=== PATIENT | female | born 1965 | race American Indian/Alaskan Native ===

== ENCOUNTER 2017-03-31 10:11 | Emergency (ER) | payer MEDICARE, MEDICAID ==
--- NOTE | 2017-03-31 12:42 | Emergency Department Report ---
ED Female HPI - General Chief complaint: Urogenital-Female Stated complaint: YEAST INFECTION/VAG BLEEDING Time Seen by Provider: 03/31/17 12:30 Source: patient Mode of arrival: Ambulatory Limitations: No Limitations - History of Present Illness Initial comments: PT c/o vaginal discharge itching, burning, and dysuria x 1 month. PT states she has tried to call her PCP to schedule an appointment but the don't call her back. PT states she has tried OTC Monistat but no improvement, last dose was last night. PT is sexual active with one partner x 4 years, does not use protection. PT does have a hx of "pre diabetes" and no longer gets menstrual cycles due to menopause MD Complaint: vaginal discharge Onset/Timin -: Gradual, month(s) Location: labia Radiation: other (makes chronic back pain worse ) Severity: severe Severity scale (0 -10): 8 Quality: burning Consistency: constant Improves with: none Worsens with: urination, medication Are you Now?: No Associated Symptoms: vaginal discharge, dysuria. denies: abdominal pain, nausea /vomiting, fever/chills - Related Data Sexually active: Yes Previous Rx's Medication Instructions Recorded Last Taken Type Fluconazole [Diflucan TAB] 150 mg PO DAILY #2 tablet 03/31/17 Unknown Rx Nitrofurantoin [place]/M-Cryst 100 mg PO Q12HR #14 capsule 03/31/17 Unknown Rx [Macrobid CAP] Allergies Allergy/AdvReac Type Severity Reaction Status Date / Time Penicillins Allergy Unknown Verified 03/12/15 10:56 ED Review of Systems ROS: Stated complaint: YEAST INFECTION/VAG BLEEDING Other details as noted in HPI Comment: All other systems reviewed and negative Constitutional: denies: chills, fever Endocrine: increased thirst, increased urine Gastrointestinal: denies: abdominal pain, nausea, vomiting Genitourinary: dysuria, frequency, discharge. denies: abnormal menses ED Past Medical Hx - Past Medical History Previous Medical History?: Yes Hx Hypertension: Yes Additional medical history: CAD, high cholesterol - Surgical History Past Surgical History?: Yes Hx Open Heart Surgery: Yes Additional Surgical History: CABG 2010 - Social History Smoking Status: Former Smoker Substance Use Type: Alcohol, Prescribed - Medications Home Medications: Home Medications Medication Instructions Recorded Confirmed Last Taken Type Fluconazole [Diflucan TAB] 150 mg PO DAILY #2 tablet 03/31/17 Unknown Rx Nitrofurantoin [place]/M-Cryst 100 mg PO Q12HR #14 capsule 03/31/17 Unknown Rx [Macrobid CAP] ED Physical Exam - General Limitations: No Limitations General appearance: alert, in no apparent distress - Head Head exam: Present: atraumatic, normocephalic, normal inspection - Eye Eye exam: Present: normal appearance. Absent: conjunctival injection - ENT ENT exam: Present: normal exam, normal external ear exam - Neck Neck exam: Present: normal inspection, full ROM - Respiratory Respiratory exam: Present: normal lung sounds bilaterally, other (vertical scar to sternum ). Absent: respiratory distress, chest wall tenderness - Cardiovascular Cardiovascular Exam: Present: regular rate, normal rhythm - GI/Abdominal GI/Abdominal exam: Present: soft, normal bowel sounds. Absent: tenderness - External exam: Present: normal external exam Speculum exam: Present: vaginal discharge, other (PT has copious amount of thin to thick white vaginal discharge. vagina with areas of excoriation. no vesicles seen ) Bi-manual exam: Present: normal bi-manual exam. Absent: cervical motion tendernes, uterine enlargement, uterine tenderness - Extremities Exam Extremities exam: Present: normal inspection, full ROM - Back Exam Back exam: Present: normal inspection, full ROM. Absent: CVA tenderness (R), CVA tenderness (L) - Neurological Exam Neurological exam: Present: alert, oriented X3, normal gait - Psychiatric Psychiatric exam: Present: normal affect, anxious (if she has an std ) - Skin Skin exam: Present: warm, dry, intact ED Course Vital Signs 03/31/17 03/31/17 10:19 14:54 Temperature 98.5 F Pulse Rate 69 71 Respiratory 16 16 Rate Blood Pressure 129/79 Blood Pressure 124/80 [Right] O2 Sat by Pulse 100 100 Oximetry - Reevaluation(s) Reevaluation #1: 03/31/17 12:42 PT aware of plan of care. Reevaluation #2: 03/31/17 14:36 PT aware of wet prep results. Due to physical exam, will treat empirically for vulvovaginal candidiasis - Pulse Oximetry Interpretation Digit-Finger Initial Pulse Oximetry Readin Actions Taken: none ED Medical Decision Making - Differential Diagnosis uti, vaginitis, onset dm Critical Care Time: No Critical care attestation.: If time is entered above; I have spent that time in minutes in the direct care of this critically ill patient, excluding procedure time. ED Disposition Clinical Impression: Vaginitis Qualifiers: Chronicity: acute Qualified Code(s): N76.0 - Acute vaginitis UTI (urinary tract infection) Qualifiers: Urinary tract infection type: acute cystitis Hematuria presence: with hematuria Qualified Code(s): N30.01 - Acute cystitis with hematuria Disposition: TO HOME OR SELFCARE Is pt being admited?: No Does the pt Need Aspirin: No Condition: Stable Instructions: Urinary Tract Infection in Women (ED), Vulvovaginal Candidiasis ( ED), Vaginitis (ED) Additional Instructions: Follow up with PCP in 3-5 days finish all antibiotics Return to ED if worsening or concerns Prescriptions: Fluconazole [Diflucan TAB] 150 mg PO DAILY #2 tablet Nitrofurantoin [place]/M-Cryst [Macrobid CAP] 100 mg PO Q12HR #14 capsule Referrals: PRIMARY CARE, [Primary Care Provider] - 3-5 Days TRISTIN WARD MD [Staff Physician] - 3-5 Days Time of Disposition: 14:39
[2017-03-31 13:00] LABS: Bacteria,Urine 1+ /HPF (Negative); Bilirubin,Urine NEG (Negative); Blood,Urine SM (Negative); Ketones,Urine NEG (Negative); Leukocyte Esterase,Urine LG (Negative); Mucus,Urine FEW /HPF; Nitrite,Urine NEG (Negative)
[2017-03-31 14:55] VITALS: BP 124/80
== END 2017-03-31 14:53 | disposition home or self-care (01) ==
LOC: ED 10:11
DX: N76.0 Acute vaginitis (principal); N30.01 Acute cystitis with hematuria; Z88.0 Allergy status to penicillin; I10 Essential (primary) hypertension; E78.00 Pure hypercholesterolemia, unspecified; Z87.891 Personal history of nicotine dependence
CPT/HCPCS: 81001; 82962; 87210; 87591; 99284

== ENCOUNTER 2019-02-18 09:05 | Emergency (ER) | payer MEDICARE ==
--- NOTE | 2019-02-18 09:25 | Emergency Department Report ---
ED General Adult HPI - General Chief complaint: Upper Respiratory Infection Stated complaint: COUGH/SOB/CHEST PAIN Time Seen by Provider: 02/18/19 09:24 Source: patient Mode of arrival: Ambulatory Limitations: No Limitations - History of Present Illness Initial comments: Shirin is a 53-year-old female past medical history of coronary artery status post defibrillator disease tobacco abuse who presents with coughing that has been going on since last Wednesday. Patient states that she's been coughing all times a day TODAY. She notes that nothing makes it better and nothing makes it worse. Patient currently denies having any shortness of breath denies having any chest pain. She states that she's been taking Robitussin-DM for her cough. She will also reports some mild throat irritation. She denies having any fevers or chills she also states that her cough has mild green mucus. - Related Data Previous Rx's Medication Instructions Recorded Last Taken Type Fluconazole [Diflucan TAB] 150 mg PO DAILY #2 tablet 03/31/17 Unknown Rx Nitrofurantoin [place]/M-Cryst 100 mg PO Q12HR #14 capsule 03/31/17 Unknown Rx [Macrobid CAP] ALBUTEROL Inhaler (OR & NICU) 2 puff IH QID PRN #1 inhalation 02/18/19 Unknown Rx [ProAir HFA Inhaler] Benzonatate [Tessalon Perles] 100 mg PO Q8HR #30 capsule 02/18/19 Unknown Rx Menthol/Camphor [Icy Hot Advanced 56 gm TP Q6H #1 cream..g. 02/18/19 Unknown Rx Relief Cream] predniSONE [Deltasone] 20 mg PO BID #10 tab 02/18/19 Unknown Rx Allergies Allergy/AdvReac Type Severity Reaction Status Date / Time Penicillins Allergy Unknown Verified 02/18/19 09:08 ED Review of Systems ROS: Stated complaint: COUGH/SOB/CHEST PAIN Other details as noted in HPI Constitutional: denies: chills, fever Eyes: denies: eye pain, eye discharge, vision change ENT: denies: ear pain, throat pain Respiratory: cough. denies: shortness of breath, wheezing Cardiovascular: denies: chest pain, palpitations Endocrine: no symptoms reported Gastrointestinal: denies: abdominal pain, nausea, diarrhea Genitourinary: denies: urgency, dysuria, discharge Musculoskeletal: denies: back pain, joint swelling, arthralgia Skin: denies: rash, lesions Neurological: denies: headache, weakness, paresthesias Psychiatric: denies: anxiety, depression Hematological/Lymphatic: denies: easy bleeding, easy bruising ED Past Medical Hx - Past Medical History Hx Hypertension: Yes Hx Asthma: Yes Additional medical history: CAD, high cholesterol - Surgical History Hx Open Heart Surgery: Yes Additional Surgical History: CABG 2010 - Social History Smoking Status: Current Every Day Smoker Substance Use Type: Prescribed - Medications Home Medications: Home Medications Medication Instructions Recorded Confirmed Last Taken Type Fluconazole [Diflucan TAB] 150 mg PO DAILY #2 tablet 03/31/17 Unknown Rx Nitrofurantoin [place]/M-Cryst 100 mg PO Q12HR #14 capsule 03/31/17 Unknown Rx [Macrobid CAP] ALBUTEROL Inhaler (OR & NICU) 2 puff IH QID PRN #1 inhalation 02/18/19 Unknown Rx [ProAir HFA Inhaler] Benzonatate [Tessalon Perles] 100 mg PO Q8HR #30 capsule 02/18/19 Unknown Rx Menthol/Camphor [Icy Hot Advanced 56 gm TP Q6H #1 cream..g. 02/18/19 Unknown Rx Relief Cream] predniSONE [Deltasone] 20 mg PO BID #10 tab 02/18/19 Unknown Rx ED Physical Exam - General Limitations: No Limitations General appearance: alert, in no apparent distress - Head Head exam: Present: atraumatic, normocephalic - Eye Eye exam: Present: normal appearance - ENT ENT exam: Present: mucous membranes moist - Neck Neck exam: Present: normal inspection - Respiratory Respiratory exam: Present: normal lung sounds bilaterally. Absent: respiratory distress - Cardiovascular Cardiovascular Exam: Present: regular rate, normal rhythm. Absent: systolic murmur, diastolic murmur, rubs, gallop - GI/Abdominal GI/Abdominal exam: Present: soft, normal bowel sounds - Extremities Exam Extremities exam: Present: normal inspection - Back Exam Back exam: Present: normal inspection - Neurological Exam Neurological exam: Present: alert, oriented X3 - Psychiatric Psychiatric exam: Present: normal affect, normal mood - Skin Skin exam: Present: warm, dry, intact, normal color. Absent: rash ED Course Vital Signs 02/18/19 09:14 Temperature 98.3 F Pulse Rate 69 Respiratory 18 Rate O2 Sat by Pulse 98 Oximetry ED Medical Decision Making - Radiology Data Radiology results: image reviewed Chest x-ray: Shows no signs of any acute cardiopulmonary disease defibrillator placement and sternotomy wires noted - Medical Decision Making Chief medical diagnosis: Bronchitis Differential medical diagnosis: Pneumonia, upper respiratory tract infection PATIENT will prednisone, viscous lidocaine for sore throat, albuterol treatment and ipratropium treatment. Patient states that her coughing symptoms have slightly improved. Discussed tobacco cessation with patient spent 5 minutes talking about E cigarettes nicotine gum and stress reduction techniques. Critical care attestation.: If time is entered above; I have spent that time in minutes in the direct care of this critically ill patient, excluding procedure time. ED Disposition Clinical Impression: Tobacco abuse counseling, Bronchitis Disposition: DC-01 TO HOME OR SELFCARE Is pt being admited?: No Does the pt Need Aspirin: No Condition: Stable Instructions: Chronic Bronchitis (ED), How to Stop Smoking (ED) Prescriptions: predniSONE [Deltasone] 20 mg PO BID #10 tab Menthol/Camphor [Icy Hot Advanced Relief Cream] 56 gm TP Q6H #1 cream..g. ALBUTEROL Inhaler (OR & NICU) [ProAir HFA Inhaler] 2 puff IH QID PRN #1 inhalation PRN Reason: Shortness Of Breath Benzonatate [Tessalon Perles] 100 mg PO Q8HR #30 capsule Referrals: ALLY DAVIDSON MD [Staff Physician] - 3-5 Days
[2019-02-18] MEDS ORDERED: LIDOCAINE VISCOUS 2% PO ONE (09:30)
[2019-02-18] MEDS ORDERED: PROVENTIL IH ONE (09:30)
[2019-02-18] MEDS ORDERED: DELTASONE PO ONE (09:30)
[2019-02-18] MEDS ORDERED: ATROVENT IH ONE (09:31)
--- NOTE | 2019-02-18 10:42 | XRay Report ---
PROCEDURE: XR CHEST ROUTINE 2V TECHNIQUE: PA and lateral chest radiographs were obtained. HISTORY: productive cough with bodyaches for 2 weeks COMPARISONS: None. FINDINGS: Frontal and lateral views the chest were acquired. There is cardiomegaly and pacing device. There is no evidence of congestive heart failure. There is no consolidative infiltrate. IMPRESSION: Cardiomegaly This document is electronically signed by Elvis Hernandez MD., February 18 2019 10:40:43 AM ET
== END 2019-02-18 11:07 | disposition home or self-care (01) ==
LOC: ED 09:05
DX: J40 Bronchitis, not specified as acute or chronic (principal); I10 Essential (primary) hypertension; J45.909 Unspecified asthma, uncomplicated; I25.10 Atherosclerotic heart disease of native coronary artery without angina pectoris; E78.00 Pure hypercholesterolemia, unspecified; F17.200 Nicotine dependence, unspecified, uncomplicated; Z88.0 Allergy status to penicillin; Z79.899 Other long term (current) drug therapy
CPT/HCPCS: 71046; 94640; 99283; J7512

== ENCOUNTER 2021-03-26 08:38 | Emergency (ER) | payer MEDICARE ==
[2021-03-26 09:33] LABS: Alanine Aminotransferase 17 units/L (7-56); Albumin 4.1 g/dL (3.9-5); BUN/Creatinine Ratio 10; Blood Urea Nitrogen 8 mg/dL (7-17); Calcium 10.4 mg/dL (8.4-10.2); Hemolysis Index 10
[2021-03-26 09:48] LABS: Basophils # (Auto) 0.1 K/mm3 (0.0-0.1); Eosinophils # (Auto) 0.2 K/mm3 (0.0-0.4); Eosinophils % (Auto) 1.9 % (0.0-4.3); Hematocrit 42.2 % (30.3-42.9); Hemoglobin 13.9 gm/dl (10.1-14.3); Lymphocytes # (Auto) 2.9 K/mm3 (1.2-5.4); Lymphocytes % (Auto) 32.8 % (13.4-35.0); Mean Corpuscular HGB Conc 33 % (30-34); Mean Corpuscular Volume 93 fl (79-97); Monocytes # (Auto) 0.7 K/mm3 (0.0-0.8); Monocytes % (Auto) 8.3 % (0.0-7.3); Red Blood Count 4.54 M/mm3 (3.65-5.03); Red Cell Distribution Width 13.4 % (13.2-15.2)
[2021-03-26 10:02] LABS: Mucus,Urine FEW /HPF
[2021-03-26 10:13] LABS: Platelet Count 101 K/mm3 (140-440)
[2021-03-26 10:23] LABS: Bilirubin,Urine Negative (Negative); Blood,Urine Negative (Negative); Color,Urine Yellow (Yellow)
[2021-03-26 10:24] LABS: Urobilinogen,Urine < 2.0 mg/dL (<2.0)
--- NOTE | 2021-03-26 11:18 | Emergency Department Report ---
ED Abdominal Pain HPI - General Chief Complaint: Abdominal Pain Stated Complaint: LEFT SIDE PAIN, BACK AND FRONT Time Seen by Provider: 03/26/21 10:54 Source: patient Mode of arrival: Ambulatory Limitations: No Limitations - History of Present Illness Initial Comments: 55-year-old -[place]ub[place] female presents to the emergency room complaining of left flank and left lower quadrant abdominal pain for about a month. Patient reports that she was seen at the clinic and was sent to the ER for further evaluation and treatment. Patient states that in the last 2 weeks the pain is gotten worse. Patient reports that she has a past medical history of h ypertension heart attack CAD high cholesterol has had open heart surgery and a CABG in 2010 with a recent diagnosis of COPD and asthma. 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 Patient reports the pain is worse when she moves. Nothing seems to make it better. MD Complaint: abdominal pain, flank pain Location: LLQ, L flank Radiation: suprapubic Severity scale (0 -10): 9 Quality: stabbing Consistency: intermittent Improves With: nothing Worsens With: movement Associated Symptoms: denies other symptoms - Related Data Previous Rx's Medication Instructions Recorded Last Taken Type Fluconazole (Nf) [Diflucan TAB] 150 mg PO DAILY #2 tablet 03/31/17 Unknown Rx Nitrofurantoin [place]/M-Cryst 100 mg PO Q12HR #14 capsule 03/31/17 Unknown Rx [Macrobid CAP] Albuterol Mdi (or & Nicu Only) 2 puff IH QID PRN #1 inhalation 02/18/19 Unknown Rx [ProAir HFA Inhaler] Benzonatate [Tessalon Perles] 100 mg PO Q8HR #30 capsule 02/18/19 Unknown Rx Menthol/Camphor [Icy Hot Advanced 56 gm TP Q6H #1 cream..g. 02/18/19 Unknown Rx Relief Cream] predniSONE [Deltasone] 20 mg PO BID #10 tab 02/18/19 Unknown Rx Allergies Allergy/AdvReac Type Severity Reaction Status Date / Time Penicillins Allergy Unknown Verified 03/26/21 08:43 ED Review of Systems ROS: Stated complaint: LEFT SIDE PAIN, BACK AND FRONT Other details as noted in HPI Comment: All other systems reviewed and negative ED Past Medical Hx - Past Medical History Hx Hypertension: Yes Hx Asthma: Yes Additional medical history: CAD, high cholesterol - Surgical History Hx Open Heart Surgery: Yes Additional Surgical History: CABG 2010 - Social History Smoking Status: Never Smoker Substance Use Type: None - Medications Home Medications: Home Medications Medication Instructions Recorded Confirmed Last Taken Type Fluconazole (Nf) [Diflucan TAB] 150 mg PO DAILY #2 tablet 03/31/17 Unknown Rx Nitrofurantoin [place]/M-Cryst 100 mg PO Q12HR #14 capsule 03/31/17 Unknown Rx [Macrobid CAP] Albuterol Mdi (or & Nicu Only) 2 puff IH QID PRN #1 inhalation 02/18/19 Unknown Rx [ProAir HFA Inhaler] Benzonatate [Tessalon Perles] 100 mg PO Q8HR #30 capsule 02/18/19 Unknown Rx Menthol/Camphor [Icy Hot Advanced 56 gm TP Q6H #1 cream..g. 02/18/19 Unknown Rx Relief Cream] predniSONE [Deltasone] 20 mg PO BID #10 tab 02/18/19 Unknown Rx ED Physical Exam - General Limitations: No Limitations General appearance: alert, in no apparent distress, anxious (Tearful) - Head Head exam: Present: atraumatic, normocephalic - Eye Eye exam: Present: normal appearance - ENT ENT exam: Present: normal exam, normal external ear exam - Neck Neck exam: Present: normal inspection, full ROM - Respiratory Respiratory exam: Absent: accessory muscle use - Cardiovascular Cardiovascular Exam: Present: regular rate - Extremities Exam Extremities exam: Present: normal inspection, full ROM - Neurological Exam Neurological exam: Present: alert, oriented X3, normal gait - Psychiatric Psychiatric exam: Present: normal affect, normal mood - Skin Skin exam: Present: warm, dry, intact, normal color. Absent: rash ED Course Vital Signs 03/26/21 08:42 Temperature 98.5 F Pulse Rate 52 L Respiratory 16 Rate Blood Pressure 140/74 O2 Sat by Pulse 100 Oximetry ED Medical Decision Making - Lab Data Result diagrams: 03/26/21 08:55 03/26/21 08:55 Laboratory Tests 03/26/21 03/26/21 03/26/21 08:55 08:55 09:17 WBC 8.8 RBC 4.54 Hgb 13.9 Hct 42.2 MCV 93 MCH 31 MCHC 33 RDW 13.4 Plt Count 101 L Lymph % (Auto) 32.8 [place] % (Auto) 8.3 H Eos % (Auto) 1.9 Baso % (Auto) Marketing Technology Coordinator Lymph # (Auto) 2.9 [place] # (Auto) 0.7 Eos # (Auto) 0.2 Baso # (Auto) 0.1 Seg Neutrophils % 56.0 Seg Neutrophils # 5.0 Sodium 141 Potassium 4.3 Chloride 107.7 H Carbon Dioxide 25 Anion Gap 13 BUN 8 Creatinine 0.8 Estimated GFR > 60 BUN/Creatinine Ratio 10 Glucose 87 Calcium 10.4 H Total Bilirubin 0.20 AST 24 ALT 17 Alkaline Phosphatase 107 Total Protein 6.5 Albumin 4.1 Albumin/Globulin Ratio 1.7 Urine Color Yellow Urine Turbidity Clear Urine pH 5.0 Ur Specific [place] 1.010 Urine Protein 30 mg/dl Urine Glucose (UA) Negative Urine Ketones Negative Urine Blood Negative Urine Nitrite Negative Ur Reducing Substances Not Reportable Urine Bilirubin Negative Urine Ictotest Not Reportable Urine Urobilinogen < 2.0 Ur Leukocyte Esterase Negative Urine WBC (Auto) 3.0 Urine RBC (Auto) 10.0 U Epithel Cells (Auto) 10.0 Urine Mucus Few - Radiology Data Radiology results: report reviewed [facility] [address] [id number] Cat Scan Report Signed Patient: LIZETTE TREJO MR#: [id number] : 1965 Acct:[id number] Age/Sex: 55 / F ADM Date: 03/26/21 Loc: ED Attending Dr: Ordering Physician: KATHY PITTMAN Date of Service: 03/26/21 Procedure(s): CT abdomen pelvis w con Accession Number(s): [id number] cc: KATHY PITTMAN CT ABDOMEN AND PELVIS WITH CONTRAST INDICATION / CLINICAL INFORMATION: LUQ pain and tenderness. OMNI 300 100ML . TECHNIQUE: Axial CT images were obtained through the abdomen and pelvis after IV contrast. All CT scans at this location are performed using CT dose reduction for ALARA by means of automated exposure control. COMPARISON: None available. FINDINGS: LOWER CHEST: There is a 6 mm nodule in the right middle lobe, series 2 image 2 LIVER: No significant abnormality. GALLBLADDER: No significant abnormality. BILE DUCTS: No significant abnormality. PANCREAS: No significant abnormality. SPLEEN: No significant abnormality. ADRENALS: No significant abnormality. RIGHT KIDNEY / URETER: No significant abnormality. LEFT KIDNEY / URETER: No significant abnormality. STOMACH / SMALL BOWEL: No significant abnormality. COLON: No significant abnormality. APPENDIX: No significant abnormality. PERITONEUM: No free fluid. No free air. No fluid collection. LYMPH NODES: No significant adenopathy. AORTA / ARTERIES: Moderate atherosclerotic calcification without acute abnormality. IVC / VEINS: No significant abnormality. URINARY BLADDER: No significant abnormality. REPRODUCTIVE ORGANS: There is prominence in the region of the endometrial cavity in the uterus. ADDITIONAL FINDINGS: None. SKELETAL SYSTEM: No acute abnormality IMPRESSION: 1. There is no obstruction, inflammation, or free air. There are no abnormal fluid collections. 2. There is prominence of the endometrial cavity in the uterus. This could represent a uterine fibroid. The possibility of an endometrial mass or neoplasm is considered. Pelvic ultrasound is recommended to further evaluate. 3. Single incidental pulmonary nodule(s) in the right middle lobe measuring 6 mm with solid characteristics. Recommendation according to Fleischner Society 2017 Guidelines: Low Risk Patient: CT at 6-12 months, then consider CT at 18-24 months; High Risk Patient: CT at 6- 12 months, then CT at 18-24 months. Signer Name: Dayo Raphael MD Signed: 03/26/2021 1:33 PM Workstation Name: [id number] Transcribed By: Dictated By: Dayo Raphael MD Electronically Authenticated By: Dayo Raphael MD Signed Date/Time: 03/26/21 1333 DD/ 1318 TD/TT: Print - Medical Decision Making 55-year-old -Cub[place] female presents to the emergency room complaining of left flank and left lower quadrant abdominal pain for about a month. Patient reports that she was seen at the clinic and was sent to the ER for further evaluation and treatment. Patient states that in the last 2 weeks the pain is gotten worse. Patient reports that she has a past medical history of hypertension heart attack CAD high cholesterol has had open heart surgery and a CABG in 2010 with a recent diagnosis of COPD and asthma. 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 Patient reports the pain is worse when she moves. Nothing seems to make it better. CBC CMP urinalysis urine CT abdomen with contrast CT shows large fibroid but no concerns for any other abdominal or pelvic abnormalities. It does show a solid 6 mm lung nodule in the right middle lobe. Critical care attestation.: If time is entered above; I have spent that time in minutes in the direct care of this critically ill patient, excluding procedure time. ED Disposition Clinical Impression: Left lower quadrant abdominal pain, Lung nodule, solitary Disposition: DC- TO HOME OR SELFCARE Is pt being admited?: No Does the pt Need Aspirin: No Condition: Stable Instructions: Abdominal Pain (ED), Flank Pain, Adult, [id number] Additional Instructions: Labs are within normal limits. Ultrasound shows no acute obstruction or inflammatory free air there is no obvious abnormal fluid collection. ED showed that there is a prominent endometrial cavity which could represent a fibroid. They also noticed a single pulmonary nodule in the right middle lung. They recommend for a follow-up in 6 to 12 months. This can be ordered by asphalt worker or your primary care provider. Referrals: PRIMARY CAREMD [Referring] - 3-5 Days [facility] [Provider Group] - 3-5 Days REEMA SIMPSON MD [Staff Physician] - 3-5 Days Time of Disposition: 15:14
--- NOTE | 2021-03-26 13:37 | Cat Scan Report ---
CT ABDOMEN AND PELVIS WITH CONTRAST INDICATION / CLINICAL INFORMATION: LUQ pain and tenderness. OMNI 300 100ML . TECHNIQUE: Axial CT images were obtained through the abdomen and pelvis after IV contrast. All CT sc ans at this location are performed using CT dose reduction for ALARA by means of automated exposure c ontrol. COMPARISON: None available. FINDINGS: LOWER CHEST: There is a 6 mm nodule in the right middle lobe, series 2 image 2 LIVER: No significant abnormality. GALLBLADDER: No significant abnormality. BILE DUCTS: No significant abnormality. PANCREAS: No significant abnormality. SPLEEN: No significant abnormality. ADRENALS: No significant abnormality. RIGHT KIDNEY / URETER: No significant abnormality. LEFT KIDNEY / URETER: No significant abnormality. STOMACH / SMALL BOWEL: No significant abnormality. COLON: No significant abnormality. APPENDIX: No significant abnormality. PERITONEUM: No free fluid. No free air. No fluid collection. LYMPH NODES: No significant adenopathy. AORTA / ARTERIES: Moderate atherosclerotic calcification without acute abnormality. IVC / VEINS: No significant abnormality. URINARY BLADDER: No significant abnormality. REPRODUCTIVE ORGANS: There is prominence in the region of the endometrial cavity in the uterus. ADDITIONAL FINDINGS: None. SKELETAL SYSTEM: No acute abnormality IMPRESSION: 1. There is no obstruction, inflammation, or free air. There are no abnormal fluid collections. 2. There is prominence of the endometrial cavity in the uterus. This could represent a uterine fibroi d. The possibility of an endometrial mass or neoplasm is considered. Pelvic ultrasound is recommended to further evaluate. 3. Single incidental pulmonary nodule(s) in the right middle lobe measuring 6 mm with solid characte ristics. Recommendation according to Fleischner Society 2017 Guidelines: Low Risk Patient: CT at 6-12 months, then consider CT at 18-24 months; High Risk Patient: CT at 6-12 months, then CT at 18-24 mon ths. Signer Name: Dayo Raphael MD Signed: 03/26/2021 1:33 PM Workstation Name: [id number]
[2021-03-26 15:12] VITALS: BP 140/72
== END 2021-03-26 15:14 | disposition home or self-care (01) ==
LOC: ED 08:38
DX: R10.32 Left lower quadrant pain (principal); R91.1 Solitary pulmonary nodule; I10 Essential (primary) hypertension; J45.909 Unspecified asthma, uncomplicated; Z98.890 Other specified postprocedural states; Z88.0 Allergy status to penicillin
CPT/HCPCS: 36415; 74177; 80053; 81001; 85025; 99284; Q9967